=== PATIENT | female | born 1985 | race Two or more races ===

== ENCOUNTER → 2025-01-05 | Outpatient (CLI) | payer MEDICAID, SELFPAY ==
--- NOTE | 2025-01-05 14:15 | XR_ITS ---
Examination: Screening digital mammography, bilateral Computer aided detection 3-D breast Tomosynthesis, bilateral Date and time of exam: January 05, 2025 1354 hours Compared to mammograms dating to May 13, 2023 Indication: Screening, history 12:00 nodule indistinct margins 7 x 5 x 6 mm on breast sonogram August 31, 2024, biopsied on September 24, 2024 Technique: Nonmagnified MLO, CC views of the breasts to been obtained, reconstructed from 3-D Tomosynthesis images. R2 computer aided detection program utilized for evaluation of suspicious masses and/or abnormal calcifications. 3-D Tomosynthesis images obtained. Findings: The breasts are heterogeneously dense, which may obscure small masses Breast biopsy marker 12:00 position right breast Stable focal asymmetry inner right breast CC view posterior depth Impression: BI-RADS Category 0: Incomplete: Need additional imaging evaluation Given the patient's breast biopsy 12:00 position right breast, recommend bilateral breast sonography follow-up
== END | disposition home or self-care (01) ==
PROVIDERS: PCP Nurse Practitioner Family; Referring Provider Nurse Practitioner Family; Visit Provider Nurse Practitioner Family
DX: Z12.31 Encounter for screening mammogram for malignant neoplasm of breast (principal); R92.8 Other abnormal and inconclusive findings on diagnostic imaging of breast
CPT/HCPCS: 77063; 77067

== ENCOUNTER → 2025-02-18 | Outpatient (CLI) | payer MEDICAID, SELFPAY ==
--- NOTE | 2025-02-18 15:30 | XR_ITS ---
Examination: Breast ultrasound complete, bilateral Date and time of exam: February 18, 2025 1544 hours INDICATIONS: History right breast biopsy September 2024, right breast sonogram August 31, 2024 12:00 nodule 14 mm 12:00 nodule 7 mm Technique: Real-time grayscale ultrasonographic imaging bilateral breasts, including all 4 quadrants as well as nipple retroareolar and axillary regions. Findings: Sonographic images right breast 12:00 cyst 4 x 5 mm 12:00 nodule lobular margins 7 x 13 mm 12:00 nodule with breast biopsy marker lobular margins 5 x 5 mm Sonographic images left breast 2:00 cyst No solid nodules IMPRESSION: BI-RADS Category 3: Probably benign findings Recommend 1 continued 6 month right breast sonogram follow-up to document stability of 2 nodules right breast described above
== END | disposition home or self-care (01) ==
PROVIDERS: PCP Physician Assistant; Referring Provider Physician Assistant; Visit Provider Physician Assistant
DX: N63.15 Unspecified lump in the right breast, overlapping quadrants (principal); N60.01 Solitary cyst of right breast; N60.02 Solitary cyst of left breast
CPT/HCPCS: 76641